=== PATIENT | male | born 1985 | race Caucasian/White ===

== ENCOUNTER 2018-03-02 12:21 | Emergency (ER) | payer OTHER ==
[2018-03-02 12:50] VITALS: BP 139/83
--- NOTE | 2018-03-02 12:54 | UC ---
Skin Complaint HPI - HPI Summary HPI Summary: 32 yo male presents with wound to his left harkins. He tells me that 5 days ago he was playing softball and slid into a base and scraped his left leg. Later that night he went fishing and was standing in pond water for an extended period of time. Since that time the area has gotten red, more painful, and has been draining yellow/brown material. He is ambulatory without assistance. Denies fever, chills, SOB, chest pain. - History of Current Complaint Chief Complaint: UCLowerExtremity Time Seen by Provider: 03/02/18 12:54 Stated Complaint: LFT LEG INJURY Hx Obtained From: Patient Onset/Duration: Gradual Onset Skin Exposure Onset/Duration: Days Ago Onset Severity: Mild Current Severity: Moderate Pain Intensity: 5 Pain Scale Used: 0-10 Numeric - Allergy/Home Medications Allergies/Adverse Reactions: Allergies Allergy/AdvReac Type Severity Reaction Status Date / Time cefadroxil [From Duricef] Allergy Unknown Verified 03/02/18 12:48 Reaction Details Review of Systems Constitutional: Negative Skin: Other - Wound left leg Respiratory: Negative Cardiovascular: Negative Neurovascular: Negative Musculoskeletal: Negative Neurological: Negative Psychological: Negative All Other Systems Reviewed And Are Negative: Yes PMH/Surg Hx/FS Hx/Imm Hx - Additional Past Medical History Additional PMH: None Previously Healthy: Yes - Surgical History Surgical History: Yes Surgery Procedure, Year, and Place: T&A - Family History Known Family History: Positive: None - Social History Occupation: Employed Full-time Lives: With Family Alcohol Use: Occasionally Substance Use Type: None Smoking Status (MU): Heavy Every Day Tobacco Smoker Type: Cigarettes Amount Used/How Often: 1/2 PPD Physical Exam - Summary Physical Exam Summary: GENERAL: NAD. WDWN. No pain distress. SKIN: LEFT LEG: anterior lower leg with 10inch abrasion with severe yellow exudate and mild surrounding erythema and tenderness. Mild edema. No streaking. NECK: Supple. Nontender. No lymphadenopathy. CHEST: No accessory muscle use. Breathing comfortably and in no distress. CV: Pulses intact NEURO: Alert. CN II-XII grossly intact. PSYCH: Age appropriate behavior. Triage Information Reviewed: Yes Vital Signs: Initial Vital Signs Temp 99.2 F 03/02/18 12:42 Pulse 68 03/02/18 12:42 Resp 15 03/02/18 12:42 BP 139/83 03/02/18 12:42 Pulse Ox 99 03/02/18 12:42 Course/Dx - Course Course Of Treatment: The wound was scrubbed and cleaned with NS. Bandaged with gauze. Rx for Clindamycin. Advised to f/u in 2-3 days for a recheck. A culture was obtained and sent to the lab - Diagnoses Provider Diagnoses: Wound infection left leg Discharge - Sign-Out/Discharge Documenting (check all that apply): Patient Departure - Discharge Plan Condition: Stable Disposition: HOME Prescriptions: Clindamycin HCl 150 mg PO TID #30 capsule Patient Education Materials: Wound Infection (DC) Referrals: No Primary Care Phys,NOPCP [Primary Care Provider] - Additional Instructions: If you develop a fever, shortness of breath, chest pain, new or worsening symptoms - please call your PCP or go to the ED. 1) Please change the dressing daily 2) Please return to Urgent Care or see your primary provider in 2-3 days for a wound recheck - Billing Disposition and Condition Condition: STABLE Disposition: Home
== END 2018-03-02 13:36 | disposition home or self-care (01) ==
LOC: UCCORT 12:21
DX: S81.802A Unspecified open wound, left lower leg, initial encounter (principal); L08.9 Local infection of the skin and subcutaneous tissue, unspecified; B95.61 Methicillin susceptible Staphylococcus aureus infection as the cause of diseases classified elsewhere; Z16.11 Resistance to penicillins; Z16.29 Resistance to other single specified antibiotic; X58.XXXA Exposure to other specified factors, initial encounter; Y93.64 Activity, baseball; Y92.9 Unspecified place or not applicable; X50.1XXA Overexertion from prolonged static or awkward postures, initial encounter; Y93.89 Activity, other specified; Y92.828 Other wilderness area as the place of occurrence of the external cause; Z88.1 Allergy status to other antibiotic agents
CPT/HCPCS: 87070; 87077; 87186; 87205; 87640; 87641; 99203; G0463

== ENCOUNTER 2018-03-11 16:47 | Emergency (ER) | payer OTHER ==
[2018-03-11 17:58] VITALS: BP 125/80
--- NOTE | 2018-03-11 18:33 | UC ---
Lower Extremity/Ankle HPI - HPI Summary HPI Summary: Patient states that 2 days ago during a softball game he dove for a base and accidentally drove his left knee into the ground. A Short time later the knee became very swollen. He is here for ongoing swelling in that knee as well as pain and difficulty with movement due to the discomfort and swelling. He also offers that he was seen here about a week ago for an infected abrasion to his left lower leg. He states he is currently taking clindamycin 150mg 3 times a day for that. He states the infection had completely resolved after taking the clindamycin for a few days so he did not follow up for a wound check as directed. He does admit that he has had some recurrent swelling to the left lower leg in the prior area of infection since injuring his knee. He has no associated fever or chills. He has no chest pain or short of breath. He does note it is very difficult to bear weight on his left leg. He denies any other injuries offers no other complaints. pt is still taking the clindamycin as directed. - History of Current Complaint Chief Complaint: UCLowerExtremity Stated Complaint: LFT KNEE INJURY Time Seen by Provider: 03/11/18 18:04 Hx Obtained From: Patient Pain Intensity: 8 - Allergies/Home Medications Allergies/Adverse Reactions: Allergies Allergy/AdvReac Type Severity Reaction Status Date / Time cefadroxil [From [facility] [place]] Allergy Unknown Verified 03/11/18 17:50 Reaction Details Home Medications: Home Medications Ibuprofen TAB* [Advil TAB*] 400 mg PO Q6H PRN 03/11/18 [History Confirmed ] PMH/Surg Hx/FS Hx/Imm Hx - Additional Past Medical History Additional PMH: cellulitis LLE last week - Surgical History Surgical History: Yes Surgery Procedure, Year, and Place: T&A - Family History Known Family History: Positive: None - Social History Occupation: Employed Full-time Lives: With Family Alcohol Use: Weekly Substance Use Type: None Smoking Status (MU): Heavy Every Day Tobacco Smoker Type: Cigarettes Amount Used/How Often: 1/2 PPD Length of Time of Smoking/Using Tobacco: approx 15 yrs - Immunization History Vaccination Up to Date: Yes Review of Systems Constitutional: Negative Skin: Negative Eyes: Negative ENT: Negative Respiratory: Negative Cardiovascular: Negative Gastrointestinal: Negative Genitourinary: Negative Motor: Negative Neurovascular: Negative Musculoskeletal: Other: - pain/swelling L knee. swelling LLE Neurological: Negative Psychological: Negative Is Patient Immunocompromised?: No All Other Systems Reviewed And Are Negative: Yes Physical Exam Triage Information Reviewed: Yes Appearance: Well-Appearing Vital Signs: Initial Vital Signs Temp 98.7 F 03/11/18 17:52 Pulse 81 03/11/18 17:52 Resp 18 03/11/18 17:52 BP 125/80 03/11/18 17:52 Pulse Ox 98 03/11/18 17:52 Eyes: Positive: Conjunctiva Clear ENT: Positive: Normal ENT inspection Neck: Positive: Supple, Nontender, No Lymphadenopathy Respiratory: Positive: Lungs clear, Normal breath sounds Cardiovascular: Positive: RRR, No Murmur Abdomen Description: Positive: Nontender, No Organomegaly, Soft Bowel Sounds: Positive: Present Musculoskeletal: Positive: Other: - LLE: Hip is without deformity or tenderness. The anterior knee has mild to moderate swelling. The patient is exquisitely tender to the distal quadricep as well as the joint line of the knee. There was no gross laxity on valgus varus and patient was not able to tolerate anterior posterior stressing. Restive knee exam deferred to ER until after x-ray. Additional left lower extremity exam patient has significant swelling to the entire left lower leg. In addition, there is erythema and warmth to the anterior aspect of left lower leg around his healing abrasion. That area is very warm to touch and is consistent with a cellulitis. Ankle and foot are atraumatic and have gross sensorivascular motor function. Neurological: Positive: Alert Psychological: Positive: Age Appropriate Behavior Skin Exam: Normal Lower Extremity Course/Dx - Course Course Of Treatment: Patient will need an x-ray of his left knee; however, I am going to defer that to the emergency room because he also has a cellulitis to his left lower leg which is failing his outpatient treatment with by mouth clindamycin. He also needs to have DVT excluded from that left lower extremity as well. Patient was placed on crutches here for nonweightbearing during his transfer from here to the ER. Pt agrees to ER transfer. [facility] ER CALLED. HX, PE D/W DR OTTO. ADVISED OF THE ACUTE KNEE INJURY AND EFFUSION PLUS DEFERING XRAY TO ER PLUS RECURRENT LLE CELLULITIS PLUS NEED TO R/O DVT. - Differential Dx/Diagnosis Provider Diagnoses: Acute L knee effusion-r/o bony pathology, L leg cellulitis, Acute LLE edma-r/o DVT Discharge - Sign-Out/Discharge Documenting (check all that apply): Patient Departure - Discharge Plan Condition: Stable Disposition: TRANS HIGHER LVL OF CARE FAC Referrals: No Primary Care Phys,NOPCP [Primary Care Provider] - Additional Instructions: LEAVE HERE AND GO DIRECTLY TO THE [facility] ER DISCUSSED - Billing Disposition and Condition Condition: STABLE Disposition: Trans Higher Lvl of Care Fac
== END 2018-03-11 18:48 | disposition short-term general hospital (02) ==
LOC: UCCORT 16:47
DX: M25.462 Effusion, left knee (principal); L03.116 Cellulitis of left lower limb; R60.9 Edema, unspecified; Z88.1 Allergy status to other antibiotic agents; F17.210 Nicotine dependence, cigarettes, uncomplicated
CPT/HCPCS: 99212; G0463

== ENCOUNTER 2018-08-12 09:21 | Emergency (ER) | payer OTHER ==
[2018-08-12 09:33] VITALS: BP 132/77
--- NOTE | 2018-08-12 09:40 | UC ---
UC General HPI - HPI Summary HPI Summary: PT C/O SORE THROAT, THROBBING EARS, BODY ACHES AND FEVER TO 101.8. ONSET FEW DAYS AGO BUT WORSENING. GIRLFRIEND WAS DX AND TX FOR STREP THROAT LAST WEEK. - History of Current Complaint Chief Complaint: UCGeneralIllness Stated Complaint: FEVER 102 Time Seen by Provider: 08/12/18 09:34 Pain Intensity: 7 Associated Signs & Symptoms: Negative: Abdominal Pain, Diarrhea, Dysuria, Nausea , Vomiting - Allergy/Home Medications Allergies/Adverse Reactions: Allergies Allergy/AdvReac Type Severity Reaction Status Date / Time cefadroxil [From Duricef] Allergy Unknown Verified 08/12/18 09:28 Reaction Details Home Medications: Home Medications D-Methorphan/PE/Acetaminophen [Daytime Cold Multi-Symp Gelcap] 1 each PO ONCE [History Confirmed 08/12/18] PMH/Surg Hx/FS Hx/Imm Hx Previously Healthy: Yes - Surgical History Surgical History: Yes Surgery Procedure, Year, and Place: T&A - Family History Known Family History: Positive: None - Social History Occupation: Employed Full-time Alcohol Use: Occasionally Substance Use Type: None Smoking Status (MU): Heavy Every Day Tobacco Smoker Type: Cigarettes Amount Used/How Often: 1/2 PPD Length of Time of Smoking/Using Tobacco: approx 15 yrs - Immunization History Vaccination Up to Date: Yes Review of Systems All Other Systems Reviewed And Are Negative: Yes Constitutional: Positive: Fever, Chills Skin: Positive: Negative Eyes: Positive: Negative ENT: Positive: Sore Throat, Ear Ache Respiratory: Positive: Negative Cardiovascular: Positive: Negative Gastrointestinal: Positive: Negative Genitourinary: Positive: Negative Motor: Positive: Negative Neurovascular: Positive: Negative Musculoskeletal: Positive: Myalgia Neurological: Positive: Headache Psychological: Positive: Negative Is Patient Immunocompromised?: No Physical Exam Triage Information Reviewed: Yes Appearance: Well-Appearing Vital Signs: Initial Vital Signs Temp 99.3 F 08/12/18 09:28 Pulse 99 08/12/18 09:28 Resp 18 08/12/18 09:28 BP 132/77 08/12/18 09:28 Pulse Ox 97 08/12/18 09:28 Vital Signs Reviewed: Yes Eyes: Positive: Conjunctiva Clear ENT: Positive: Pharyngeal erythema, TMs normal, Uvula midline. Negative: Nasal congestion, Nasal drainage, Tonsillar swelling, Tonsillar exudate, Trismus, Muffled voice, Hoarse voice Neck: Positive: Supple, Tenderness @ - PERITONSILAR NODES WITH MILD NODE SWELLING. Respiratory: Positive: Lungs clear, Normal breath sounds Cardiovascular: Positive: RRR, No Murmur Abdomen Description: Positive: Nontender, No Organomegaly, Soft Bowel Sounds: Positive: Present Musculoskeletal: Positive: ROM Intact Neurological: Positive: Alert Psychological: Positive: Age Appropriate Behavior Skin Exam: Normal Diagnostics - Laboratory Diagnostic Studies Completed/Ordered: RAPID STREP=POSITIVE Course/Dx - Diagnoses Provider Diagnosis: Strep throat Discharge - Sign-Out/Discharge Documenting (check all that apply): Patient Departure All imaging exams completed and their final reports reviewed: No Studies - Discharge Plan Condition: Stable Disposition: HOME Prescriptions: Penicillin VK 500 MG TAB(NF) [Penicillin VK 500 mg Tab] 500 mg PO BID 10 Days # 20 tab Patient Education Materials: Strep Throat (DC) Referrals: DAVID Soriano [Medical Doctor] - 7 Days - Billing Disposition and Condition Condition: STABLE Disposition: Home
== END 2018-08-12 09:50 | disposition home or self-care (01) ==
LOC: UCCORT 09:21
DX: J02.0 Streptococcal pharyngitis (principal); B95.0 Streptococcus, group A, as the cause of diseases classified elsewhere; Z88.1 Allergy status to other antibiotic agents; F17.210 Nicotine dependence, cigarettes, uncomplicated
CPT/HCPCS: 87651; 99212; G0463

== ENCOUNTER 2018-11-04 16:16 | Emergency (ER) | payer OTHER ==
[2018-11-04 16:41] VITALS: BP 133/66
--- NOTE | 2018-11-04 16:48 | UC ---
General HPI - HPI Summary HPI Summary: PT TOOK THE SLIN OFF HER L PINKY 10 DAYS AGO. ABOUT 3 DAYS AGO THE AREA TURNED RED. THIS AM, HE PEELED OFF SOME SKIN AND "SQUEEZED A LITTLE PUSS" FROM IT. NO JOINT PAIN, FEVER, LIMITED ROM OR MRSA. HX CELLULITIS L LEG SO HE WANTS THIS TX BEFORE IT GETS THAT BAD. - History of Current Complaint Chief Complaint: UCUpperExtremity Stated Complaint: LEFT PINKY - SKIN Time Seen by Provider: 11/04/18 16:41 Hx Obtained From: Patient Onset/Duration: Gradual Onset Timing: Constant Pain Intensity: 5 Associated Signs & Symptoms: Negative: Fever - Allergy/Home Medications Allergies/Adverse Reactions: Allergies Allergy/AdvReac Type Severity Reaction Status Date / Time cefadroxil [From Durice] Allergy Unknown Verified 11/04/18 16:41 Reaction Details PMH/Surg Hx/FS Hx/Imm Hx - Additional Past Medical History Additional PMH: CELLULITIS - Surgical History Surgical History: Yes Surgery Procedure, Year, and Place: T&A - Family History Known Family History: Positive: None - Social History Occupation: Employed Full-time Alcohol Use: Occasionally Substance Use Type: None Smoking Status (MU): Heavy Every Day Tobacco Smoker Type: Cigarettes Amount Used/How Often: 1/2 PPD Length of Time of Smoking/Using Tobacco: approx 15 yrs - Immunization History Vaccination Up to Date: Yes Review of Systems All Other Systems Reviewed And Are Negative: Yes Skin: Positive: Rash - L PINKY Physical Exam Triage Information Reviewed: Yes Appearance: Well-Appearing Vital Signs: Initial Vital Signs Temp 98.2 F 11/04/18 16:37 Pulse 75 11/04/18 16:37 Resp 16 11/04/18 16:37 BP 133/66 11/04/18 16:37 Pulse Ox 98 11/04/18 16:37 Vital Signs Reviewed: Yes Eyes: Positive: Conjunctiva Clear ENT: Positive: Normal ENT inspection Neck: Positive: Supple Respiratory: Positive: No respiratory distress Cardiovascular: Positive: RRR Abdomen Description: Positive: Nontender Musculoskeletal: Positive: ROM Intact Neurological: Positive: Alert Psychological: Positive: Age Appropriate Behavior Skin Exam: Normal, Other - Abrasion over L 5th pip joint on the dorsal surface with mild overlying erythema and mild swelling. Finegr has full s/v/m function and no bony tenderness. Rest of hand is unremarkable. Course/Dx - Diagnoses Provider Diagnosis: Superficial injury of left little finger with infection Discharge - Sign-Out/Discharge Documenting (check all that apply): Patient Departure All imaging exams completed and their final reports reviewed: No Studies - Discharge Plan Condition: Stable Disposition: HOME Prescriptions: DOXYcycline CAP(*) [DOXYcycline 100MG CAP(*)] 100 mg PO BID 10 Days #20 cap Patient Education Materials: Cellulitis (DC) Referrals: DAVID Soriano [Medical Doctor] - 3 Days - Billing Disposition and Condition Condition: STABLE Disposition: Home - Attestation Statements Provider Attestation: Per institutional requirements, I have reviewed the chart, however, I was not consulted specifically or made aware of this patient by the midlevel provider. I did not personally evaluate, interact with , or disposition this patient.
== END 2018-11-04 17:00 | disposition home or self-care (01) ==
LOC: UCCORT 16:16
DX: S60.941A Unspecified superficial injury of left index finger, initial encounter (principal); L08.9 Local infection of the skin and subcutaneous tissue, unspecified; F17.210 Nicotine dependence, cigarettes, uncomplicated; Z87.2 Personal history of diseases of the skin and subcutaneous tissue; Z88.1 Allergy status to other antibiotic agents; X58.XXXA Exposure to other specified factors, initial encounter; Y92.9 Unspecified place or not applicable
CPT/HCPCS: 99212; G0463